=== PATIENT | female | born 1970 | race Caucasian/White ===

== ENCOUNTER 2022-06-02 21:36 | Inpatient (IN) | payer OTHER ==
[~2022-06-02] VITALS: Ht 160 cm; Wt 78.9 kg
[2022-06-02 21:39] VITALS: BP 154/89
--- NOTE | 2022-06-02 21:39 | NUR ---
PT ASIA BLS. TAKEN TO BED 8
--- NOTE | 2022-06-02 21:46 | NUR ---
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
--- NOTE | 2022-06-02 21:54 | NUR ---
52YR OLD FEMALE BIB EMS C/O HR RACING/PALPATIONS HEADACHE. SX STARTED THIS AFTERNOON TO EVENING AFTER RECIEVING CORTISONS SHOTS TODAY. PT IS A&OX4 SKIN WARM AND DRY. RESP EVEN AND UNLABORED. 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 HOB ELEVATED BED AT LOWEST LEVEL. CEPHALEXIN CORTISONE HYPOTHYROID RA
--- NOTE | 2022-06-02 22:38 | NUR ---
CONTACT INFO FOR PT ROOMMATE EVER PROVIDED
--- NOTE | 2022-06-02 22:59 | NUR ---
DR STEPHEN AT BEDSIDE
--- NOTE | 2022-06-02 23:09 | NUR ---
CONTACT INFO FOR PT MOTHER DANIEL PROVIDED
[2022-06-02] MEDS ORDERED: ACETAMINOPHEN 325 MG TAB PO ONE (23:10)
[2022-06-02] MEDS ORDERED: ONDANSETRON 4 MG ODT PO ONE (23:10)
--- NOTE | 2022-06-02 23:15 | NUR ---
PATIENT AMBULATED TO AND BACK TO BED 8 WITH STEADY GAIT
--- NOTE | 2022-06-02 23:17 | NUR ---
Dr. Caraballo examining patient.
[2022-06-02] MEDS ORDERED: ONDANSETRON 4 MG/2 ML VIAL IVP ONE (23:20)
[2022-06-02] MEDS ORDERED: NACL 0.9% 1,000 ML IV SCH (23:20)
[2022-06-02 23:23] LABS: APPEARANCE,URINE SL CLOUDY (CLEAR); BILIRUBIN,URINE NEGATIVE (NEGATIVE); BLOOD, URINE 3+ (NEGATIVE); COLOR,URINE YELLOW (YELLOW); LEUKOCYTE ESTERASE ,URINE NEGATIVE (NEGATIVE); NITRITE, URINE NEGATIVE (NEGATIVE); PH,URINE 5.5 (5.0-9.0); UGLUCOSE 3+ (NEGATIVE)
--- NOTE | 2022-06-02 23:36 | NUR ---
Nidhi smith in [facility] - 06/02/22 at 2336 by TOAN PT TAKEN TO CT
--- NOTE | 2022-06-02 23:36 | NUR ---
PT TO CT
--- NOTE | 2022-06-02 23:37 | NUR ---
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 PT STARTED VOMITING. 20G IV CATH PLACED IN L AC. MEDS GIVEN
[2022-06-02 23:38] LABS: BASOPHILS % (AUTO) 0.1 % (0.0-2.0); HEMATOCRIT 37.5 % (36-48); HEMOGLOBIN 12.4 g/dL (12.0-16.0); LYMPHOCYTES # (AUTO) 0.6 K/uL (2.5-16.5); LYMPHOCYTES % (AUTO) 4.5 % (20.5-51.1); MEAN CORPUSCULAR HEMOGLOBIN 31 pg (27-31); MEAN CORPUSCULAR HGB CONC 33 g/dL (33-37); MEAN CORPUSCULAR VOLUME 92.8 fL (80-94); MONOCYTES # (AUTO) 0.6 K/uL (0.8-1.0); MONOCYTES % (AUTO) 4.5 % (1.7-9.3); NEUTROPHILS % (AUTO) 90.9 % (42.2-75.2); PLATELET COUNT (AUTO) 393 K/uL (140-450); RED BLOOD CELL COUNT(AUTO) 4.04 MIL/uL (4.20-5.40); RED CELL DISTRIBUTION WIDTH 14.2 % (11.6-13.7); WHITE BLOOD COUNT (AUTO) 13.2 K/uL (4.8-10.8)
[2022-06-02 23:38] LABS: RBC,URINE 0-5 /HPF (0-5); WBC,URINE 0-5 /HPF (0-5)
--- NOTE | 2022-06-02 23:45 | NUR ---
PT RETURN FROM CT
[2022-06-03] VITALS (13 sets, daily range): BP systolic 116–171; BP diastolic 71–100
[2022-06-03 00:01] LABS: ALBUMIN 3.4 g/dL (3.4-5.0); ANION GAP 26.9 (8-16); CARBON DIOXIDE 15.3 mmol/L (21-32); CREATININE 2.3 mg/dL (0.6-1.3); POTASSIUM 3.2 mmol/L (3.5-5.1); TOTAL BILIRUBIN 0.4 mg/dL (0.0-1.0)
[2022-06-03] MEDS ORDERED: NACL 0.9% 1,000 ML IV SCH (00:10)
--- NOTE | 2022-06-03 00:13 | NUR ---
Dr. Caraballo examining patient.
[2022-06-03] MEDS ORDERED: cefTRIAXone 2,000 MG in DEXTROSE 5% 100 ML IV ONE (00:15)
[2022-06-03] MEDS ORDERED: cefTRIAXone 2,000 MG VIAL ONE (00:18)
[2022-06-03] MEDS ORDERED: NACL 0.9% 500 ML IV ONE (00:20)
--- NOTE | 2022-06-03 00:24 | NUR ---
BLOOD CULTURES DRAWN AT BEDSIDE AND SENT TO LAB. 2L O2 APPLIED VIA NC. SP02 98%
--- NOTE | 2022-06-03 00:24 | NUR ---
LAB AT BEDSIDE
--- NOTE | 2022-06-03 00:37 | NUR ---
COVID SWAB COLLECTED AND SENT TO LAB
[2022-06-03] MEDS ORDERED: MAG SULF 2000 MG/WATER PREMIX 50 ML IV ONE (00:40)
[2022-06-03] MEDS ORDERED: KCL 20 MEQ/WATER INJ PREMIX 200 ML IV ONE (00:40)
[2022-06-03] MEDS ORDERED: MORPHINE SULFATE 4 MG/ML SYR IVP ONE (00:40)
[2022-06-03] MEDS ORDERED: SYN.075 PO (00:42)
[2022-06-03] MEDS ORDERED: ACET-10509 PO (00:43)
[2022-06-03] MEDS ORDERED: HYDR200T5 PO (00:50)
--- NOTE | 2022-06-03 00:51 | NUR ---
PT WILL BE ADMITED TO HOSPITAL. PENDING ADMISSION ORDERS. MED RECONCILE COMPLETED
--- NOTE | 2022-06-03 00:57 | NUR ---
PT RESTING WITH HOB ELEVATED. PT IS ON BEDSIDE MONITOR. NO DISTRESS NOTED. PT IS AWARE OF ADMISSION.
--- NOTE | 2022-06-03 01:20 | NUR ---
K RIDER STARTED ORDERED BY KARL. PATIENT TOLERATING WELL. PATIENT ON BEDSIDE BUDGET RECORD CLERK WITH BED LOW AND SIDE RAILS UP FOR SAFETY. CALL LIGHT IN REACH.
--- NOTE | 2022-06-03 02:21 | NUR ---
REPEAT TROP K+ AND LATIC ACID. FURNITURE ASSEMBLER AT BEDSIDE
[2022-06-03 02:52] LABS: ALBUMIN 3.1 g/dL (3.4-5.0); ANION GAP 19.1 (8-16); CARBON DIOXIDE 20.4 mmol/L (21-32); CREATININE 1.6 mg/dL (0.6-1.3); POTASSIUM 3.5 mmol/L (3.5-5.1); TOTAL BILIRUBIN 0.2 mg/dL (0.0-1.0)
--- NOTE | 2022-06-03 03:30 | NUR ---
PT AWAKE AND RESTING . PAIN LEVEL 2/10 HEADACHE. 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 RESP EVEN AND UNLABORED. 2ND EKG DONE. PT DENIES ANY SOB OR CP.
--- NOTE | 2022-06-03 04:04 | NUR ---
PATIENT RESTING IN BED WITH EYES CLOSED. RR APPEAR TO BE EVEN AND UNLABORED. DOESNT APPEAR TO BE IN DISTRESS. PATIENT ON BEDSIDE SOUND RANGING CREWMEMBER. VSS UTD IN CHART. BED LOW AND LOCKED. VENICE SIDE RAILS UP FOR SAFETY. CALL LIGHT IN REACH.
--- NOTE | 2022-06-03 04:26 | NUR ---
PLACED ORDERS, I HAD HIM SPEAK TO BEFORE CARRYING OUT HIS ORDERS. WOULD LIKE TO MOVE [facility] WITH HIS ORDERS PLACED.
[2022-06-03] MEDS ORDERED: NOREPINEPHRINE 4 MG in DEXTROSE 5% 250 ML IV PRN (04:35)
[2022-06-03] MEDS ORDERED: BLOOD GLUCOSE MONITORING 1 DEV DEV FS SCH ×2 (04:35→08:28)
[2022-06-03] MEDS ORDERED: INSULIN LISPRO SLIDING SCALE 100 UNITS/ML VIAL SUBQ PRN (04:35)
--- NOTE | 2022-06-03 04:47 | NUR ---
PT/INR DRAWN AND SENT TO LAB
--- NOTE | 2022-06-03 04:53 | NUR ---
ORDERS PLACED PER . CLOTTING FACTORS PENDING. HEPARIN HELD UNTIL RESULTED.
--- NOTE | 2022-06-03 05:04 | NUR ---
ASSISTED PATIENT WITH BEDPAN. TOLERATED WELL. REPOSITIONED AND PLACED NEW LINEN ON PATIENT. ALL NEEDS MET.
[2022-06-03 05:08] LABS: PROTHROMBIN TIME 10.1 secs (10.8-13.4)
--- NOTE | 2022-06-03 05:27 | NUR ---
CALLED TO BEDSIDE BY RN. PT WAS AGITATED AND DESAT TO 70'S WITH AN ELEVATED HR TO 145. PLACED PT ON HFNC 40L 100% PT HR LOWERED TO 130 AND SPO2 INCREASED TO 98% PT BECAME LESS AGITATED WITH EQUAL CHEST RISE BILAT BREATH SOUNDS COARSE AND TOLERATING HFNC. WILL CONTINUE TO MONITOR. Addendum: 06/03/22 at 0536 by Natalie Preston RT NOTATED WRONG PT PLEASE DISREGARD
--- NOTE | 2022-06-03 05:30 | NUR ---
REPORT GIVEN TO LINDA MALLOY. TRANSFER OF CARE
--- NOTE | 2022-06-03 05:30 | NUR ---
Patient will be admitted to care of VIDHI TROTTER. Admited to ICU . Will go to BED 5. Belongings list completed. Report to LINDA MALLOY. TRANSFER OF CARE.
[2022-06-03] MEDS ORDERED: HEPARIN PER PHARMACY MC STA (05:43)
--- NOTE | 2022-06-03 05:43 | NUR ---
Nidhi smith in [facility] - 06/03/22 at 0545 by BRAYDEN REPORT GIVEN TO LINDA MALLOY. TRANSFER OF CARE.
--- NOTE | 2022-06-03 05:50 | NUR ---
RECEIVED PT FROM ER AFTER REPORT FROM GERONIMO MCKEON. PT AMBULATED TO BED W/STEADY GAIT.MONITORS ATTACHED.ST NOTED ON MONITOR.PT AWAKE ALERT AND ORIENTED X4.ON 02NC AT 2LPM, NO SOB NOTED.PER REPORT PT VOIDED PRIOR TO COMING TO ICU, ADEQUATE AMT.W/PERIPHERAL IV TO LT AND RT AC G20, INTACT.PT NO DIET ORDER,WILL F/U WITH MD.SKIN INTACT.DENIES PAIN AT THIS TIME.CALL LIGHT WITHIN REACH.FALL PRECAUTION IN PLACE.WILL CONTINUE TO CLOSELY MONITOR PT
--- NOTE | 2022-06-03 07:07 | NUR ---
PHONE CALL TO PTS AR\ARENTS PER PTS REQUEST,UPDATED ON PTS PRESENT CONDITION.QUESTIONS ANSWERED
[2022-06-03] MEDS ORDERED: ZOLPIDEM 5 MG TAB PO PRN (08:20)
[2022-06-03] MEDS ORDERED: HYDROcodone/APAP 7.5/325 MG 1 TAB PO PRN (08:20)
[2022-06-03] MEDS ORDERED: DOCUSATE SODIUM 100 MG GELCAP PO PRN (08:20)
[2022-06-03] MEDS ORDERED: ACETAMINOPHEN 325 MG TAB PO PRN (08:20)
[2022-06-03] MEDS ORDERED: guaiFENesin DM 200/20 MG-10 ML 10 ML UDC PO PRN (08:20)
[2022-06-03] MEDS ORDERED: POTASSIUM CHLORIDE 10 MEQ TABER PO PRN (08:20)
[2022-06-03] MEDS ORDERED: ONDANSETRON 4 MG/2 ML VIAL IM/IVP PRN (08:20)
[2022-06-03] MEDS ORDERED: NITROGLYCERIN 0.4 MG TAB SL PRN (08:30)
[2022-06-03] MEDS ORDERED: BLOOD GLUCOSE MONITORING 1 DEV DEV FS PRN (08:33)
[2022-06-03] MEDS: LEVOTHYROXINE 0.075 MG TAB PO SCH (08:44)
[2022-06-03] MEDS: ECOTRIN 81 MG TABEC PO SCH (08:44)
[2022-06-03] MEDS: PANTOPRAZOLE 40 MG TABEC PO SCH (08:45)
[2022-06-03] MEDS ORDERED: METOPROLOL 25 MG TAB PO SCH (09:00)
[2022-06-03] MEDS ORDERED: lisinopriL 5 MG TAB PO SCH (09:00)
--- NOTE | 2022-06-03 09:00 | NUR ---
DR SERGO BURNETT AT BEDSIDE, DISCUSSED PLAN OF CARE WITH PT. NO NEW ORDERS AT THIS TIME.
--- NOTE | 2022-06-03 10:05 | NUR ---
SBAR REPORT RECEIVED FROM MI MCKEON, ALL CARES ASSUMED. PT RESTING IN BED ALERT, ORIENTED, CONVERSING WITH STAFF. BED IN LOW,LOCKED POSITION. CALL LIGHT WITHIN REACH.
--- NOTE | 2022-06-03 10:08 | NUR ---
ECHOCARDIOGRAM AT BEDSIDE.
--- NOTE | 2022-06-03 10:17 | NUR ---
PATIENT HAS BEEN SCREENED AND CATEGORIZED HIGH NUTRITION RISK. PATIENT WILL BE SEEN WITHIN 1-2 DAYS OF ADMISSION. 06/03/22-06/05/22 FNS REFERRAL RECEIVED FOR VOMITING > 3 DAYS. REVIEWED BY FILIBERTO DELATORRE RD
[2022-06-03] MEDS: NACL 0.9% 1,000 ML IV SCH ×2 (10:42→16:43)
[2022-06-03 11:40] LABS: CHOL/HDL RATIO 1.7 (1-4.5); FREE T4 (FREE THYROXINE) 0.95 ng/dL (0.76-1.46); MAGNESIUM 2.4 mg/dL (1.8-2.4); PHOSPHORUS 3.2 mg/dL (2.5-4.9); THYROID STIMULATING HORMONE 1.23 uIU/mL (0.34-3.74)
[2022-06-03] MEDS ORDERED: HEPARIN PER PHARMACY MC PRN (11:40)
[2022-06-03 11:42] LABS: PROTHROMBIN TIME 9.9 secs (10.8-13.4)
[2022-06-03] MEDS: hePARIN / DEXT 5% PREMIX 250 ML IV SCH (13:17)
--- NOTE | 2022-06-03 15:15 | NUR ---
PT COMPLAINING OF PAIN AT IV SITE ON LEFT AC. NEW IV INITIATED TO LEFT WRIST WITH 20G CATHETER. BLOOD RETURN NOTED, FLUSHED WITH NORMAL SALINE. NO WARMTH, TENDERNESS OR SWELLING NOTED AT THE SITE. IV TO LEFT AC REMOVED. NO ACTIVE BLEEDING NOTED AT SITE.
--- NOTE | 2022-06-03 15:32 | NUR ---
06/03/2022 RD INITIAL ASSESSMENT COMPLETED PLEASE REFER TO NUTRITION ASSESSMENT UNDER CARE ACTIVITY FOR ESTIMATED NUTRITIONAL NEEDS. 1.RECOMMEND 60 GRAMS CCHO DIET + CARDIAC DIET. 2.MONITOR PO INTAKE AND BLOOD GLUCOSE LEVEL 3.RD TO FOLLOW-UP IN 3-5 DAYS PATIENT IS MODERATE RISK. FILIBERTO DELATORRE, RD
[2022-06-03] MEDS ORDERED: hydrALAZINE 20 MG/ML VIAL IVP PRN (16:20)
--- NOTE | 2022-06-03 16:41 | NUR ---
DC PLANNING: DR FRANKLIN ORDERED FOR PATIENT TO TRANSFER TO HIGHER LEVEL OF CARE FOR CARDIAC CATH. FAXED TO [facility] AND PROVIDE ICU UNIT'S NUMBER AND NOTIFIED JUANCARLOS MCKEON TO FOLLOW UP . CM TO FOLLOW Addendum: 06/04/22 at 1040 by Nya Camacho RN DC PLANNING: CALLED [facility] [phone] SPOKE WITH MELCHOR CASE RE RECORDING MIXER, UPDATED ALL PT'S CLINICAL AND PROVIDE DR FRANKLIN AND DR PEREZ'S PHONE NUMBER. PER MELCHOR ONCE IT REVIEWED BY CM WILL CONTACT [facility]. CM TO FOLLOW
[2022-06-03] MEDS ORDERED: ATORVASTATIN 20 MG TAB PO SCH (17:00)
--- NOTE | 2022-06-03 18:10 | NUR ---
PATIENT WHEELED ON WHEELCHAIR BY NURSE MICHELLE AND JUANCARLOS FROM ICU. PATIENT ALERT AND ORIENTED ABLE TO MAKE NEEDS KNOWN RESPIRATION EVEN AND NOT LABORED. WHEN TRANSFERRING AND MAKING PATIENT SITUATED PATIENT IV ON RIGHT AC NOTED LEAKING AND RN CHANGE THE SITE TO LEFT FOREARM ELEONORA 22, ALSO PATIENT HAS ELEONORA 20 ON RIGHT WRIST. PATIENT RUNNING HEPARIN DRIP AT 800 CC/HOUR AND IV FLUID OF NS AT 1125 CC/HOUR. CALL LIGHT WITH IN EASY REACH. PATIENT ON 87 SINUS RHYTHM NO COMPLAIN OF CHEST PAIN OR ANY DISCOMFORT.
--- NOTE | 2022-06-03 18:45 | NUR ---
PT TRANSFERRED TO BED 105B. SBAR REPORT GIVEN TO GRICEL MCKEON, ALL CARES ENDORSED.
--- NOTE | 2022-06-03 19:30 | NUR ---
RECEIVED PT ENDORSEMENT FROM DAY SHIFT NURSE FOR CONTINUITY OF CARE. PT IS AWAKE, LAERT AND VERBALLY RESPONSIVE, FAMILY MEMBER IS ON BED SIDE IV SALINE LOCK LEFT AC 20=20G & LEFT FOREARM 20G ARE INTACT AND PATENT, NO SIGN/SYMPTOM OF INFECTION. PT IS CONTINENT AND AMBULATORY. PT IS DOWN GRADE FROM ICU, IS ON STABLE. CONTINUE MONITORING.
[2022-06-03] MEDS: carvediloL 12.5 MG TAB PO SCH (21:00)
--- NOTE | 2022-06-03 21:46 | NUR ---
PT APTT 28.8, PT IS ON HEPARIN DRIP, CURRENTLY HEPARIN DRIP AT 800 UNITS/HR. HEPARIN BOLUS 3800 UNITS ADMINISTERED ORDER. HEPARIN IV DRIP CURRENTLY 800 UNITS, ADD 300 UNITS PER ORDER WHEN APTT BELOW 35. PT WELL TOLERATED, NO SIDE REACTION AT THIS TIME.
[2022-06-03] MEDS ORDERED: cefTRIAXone 1,000 MG VIAL ONE (23:58)
[2022-06-04] VITALS (10 sets, daily range): BP systolic 90–118; BP diastolic 56–96
[2022-06-04] MEDS: NACL 0.9% 1,000 ML IV SCH ×3 (01:32→17:47)
--- NOTE | 2022-06-04 01:37 | NUR ---
PT IS SLEEPING WELL, NO ALLERGY REACTION ON IV ANTIBIOTIC.
[2022-06-04 03:31] LABS: BASOPHILS # (AUTO) 0.1 K/uL (0.00-0.22); BASOPHILS % (AUTO) 0.5 % (0.0-2.0); HEMATOCRIT 30.9 % (36-48); HEMOGLOBIN 10.2 g/dL (12.0-16.0); LYMPHOCYTES # (AUTO) 1.7 K/uL (2.5-16.5); LYMPHOCYTES % (AUTO) 7.3 % (20.5-51.1); MEAN CORPUSCULAR HEMOGLOBIN 31 pg (27-31); MEAN CORPUSCULAR HGB CONC 33 g/dL (33-37); MEAN CORPUSCULAR VOLUME 92.6 fL (80-94); MONOCYTES # (AUTO) 1.4 K/uL (0.8-1.0); MONOCYTES % (AUTO) 6.1 % (1.7-9.3); NEUTROPHILS % (AUTO) 86.1 % (42.2-75.2); PLATELET COUNT (AUTO) 266 K/uL (140-450); RED BLOOD CELL COUNT(AUTO) 3.34 MIL/uL (4.20-5.40); RED CELL DISTRIBUTION WIDTH 14.8 % (11.6-13.7); WHITE BLOOD COUNT (AUTO) 23.2 K/uL (4.8-10.8)
[2022-06-04 03:53] LABS: CARBON DIOXIDE 25.9 mmol/L (21-32); POTASSIUM 4.9 mmol/L (3.5-5.1)
[2022-06-04] MEDS: hePARIN / DEXT 5% PREMIX 250 ML IV SCH ×2 (05:17→13:49)
--- NOTE | 2022-06-04 05:28 | NUR ---
LAB RESULT THIS AM = 45.6. HEPARIN DRIP ADJUST DOSAGE AND INCREASE 100 UNITS WITH TOTAL OF 1,200 UNITS/HR. ADMINISTERED HEPARIN BOLUS 1900 UNITS IVP. PT TOLERATES WELL. NO SIDE REACTION.
[2022-06-04] MEDS: LEVOTHYROXINE 0.075 MG TAB PO SCH (05:50)
--- NOTE | 2022-06-04 06:50 | NUR ---
CHECK PT BLOOD SUGAR = 70, NO SLIDING SCALE COVERAGE, NO INSULIN NEEDED.
--- NOTE | 2022-06-04 06:50 | NUR ---
REVISED ON THE PREVIOUS NOTES, PT HAS NO DM OR BLOOD SUGAR PROBLEM, THIS ALLERGY AND IMMUNOLOGY SPECIALIST MADE A MISTAKE, THIS IS FOR OTHER PATIENT.
--- NOTE | 2022-06-04 07:50 | NUR ---
PT IS ON STABLE CONDITION, ALL SAFETY MEASURES ARE IN PLACE. ENDORSED TO DAY SHIFT NURSE FOR CONTIN OF CARE.
--- NOTE | 2022-06-04 07:52 | NUR ---
GOT REPORT FROM THE NIGHT NURSE PT AWAKE DISCUSSED [id number]
[2022-06-04 08:07] LABS: T4 (THYROXINE) 5.6 ug/dL (4.5-12.0)
[2022-06-04] MEDS: carvediloL 12.5 MG TAB PO SCH (08:25)
[2022-06-04] MEDS: ECOTRIN 81 MG TABEC PO SCH (08:27)
[2022-06-04] MEDS: PANTOPRAZOLE 40 MG TABEC PO SCH (08:27)
[2022-06-04] MEDS: PIPERACILLIN/TAZOBACTAM 3.375 GM in DEXTROSE 5% 50 ML IV SCH ×2 (11:41→17:49)
--- NOTE | 2022-06-04 14:23 | NUR ---
DC PLANNING [facility] MET WITH PT AT BEDSIDE TO COMPLETE ASSESSMENT. PATIENT REPORTS RESIDING IN A SINGLE STORY HOME WITH HER AT THE ADDRESS LISTED ON FILE. PATIENT IDENTIFIED ANIA WADE, MOM [phone] AND JOSÉ MIGUEL WADE, FATHER, EMERGENCY CONTACTS. PATIENT DENIES HAVING AD IN PLACE AND ACCEPTED AD OFFERED BY [facility]. PATIENT REPORTS MEETING WITH PCP, RODRIGUEZ DAVENPORT, NEEDED, LAST VISIT; 06/02. PATIENT REPORTS MEDICATION COMPLIANCE AND DENIES BARRIERS IN ACCESS TO NEEDED MEDICATIONS. PATIENT REPORTS THAT MEDICATION IN MAILED TO HER HOME. PATIENT REPORTS BEING INDEPENDENT IN ALL ACTIVITIES AND DENIES USE OF DME. PT DENIES MH/SA HX. PT REPORTS DC PLAN IS TO BE TRANSFERRED TO [place]. SW NOTIFIED PT THAT CM IS WORKING ON TRANSFER AND WOULD PROVIDE UPDATES. PATIENT IN UNDERSTANDING. SW INQUIRED ON RESOURCES NEEDED AT THIS TIME, PT DECLINED. PT DENIES HX OF DIABETES, DIALYSIS, HH SERVICES AND SNF PLACEMENT. Addendum: 06/04/22 at 1425 by Yuliet HINTON Amended: Links added.
--- NOTE | 2022-06-04 19:10 | NUR ---
RECEIVED REPORT FROM DAY SHIFT LINDA GARCÍA FOR CONTINUITY OF CARE. PT IS AAOX4 ON ROOM AIR. PT IS AMBULATORY. PT HAS LEFT AC 20 GAUGE AND LEFT FOREARM 22 GAUGE. PT IS RUNNING NS 120 CC/HR. PT IS ALSO ON HEPARIN DRIP 1200 UNITS PER HOUR. PT IS CONTINENT. PLAN OF CARE DISCUSSED. CALL LIGHT WITHIN REACH. WILL CONTINUE TO MONITOR THE PT.
--- NOTE | 2022-06-04 20:20 | NUR ---
CALL CENTER AND GAVE REPORT TO LINDA LOPEZ. PT IS GOING TO [facility] ROOM 639. MORTGAGE LOAN COUNSELOR TIME IS 1999.
--- NOTE | 2022-06-04 21:10 | NUR ---
[facility] IS HERE FOR THE PT. PT LEFT FACILITY IN STABLE CONDITION.
[2022-06-04 21:50] LABS: BARBITURATE, URINE NEGATIVE ng/ml (NEG <=200); BENZODIAZEPINE, URINE NEGATIVE ng/mL (NEG <=200); CANNABINOID, URINE NEGATIVE ng/mL (NEG <=50); COCAINE, URINE NEGATIVE ng/mL (NEG <=300); OPIATE, URINE POSITIVE ng/mL (NEG <=2000); PHENCYCLIDINE SCREEN,URINE NEGATIVE ng/mL (NEG <=25)
== END 2022-06-04 21:10 | disposition short-term general hospital (02) | DRG 871 ==
LOC: MED 21:36 → MIC 06-03 04:48 → MTU 06-03 18:44
PROVIDERS: ADMIT Family Medicine; ATTEND Family Medicine
DX: A41.9 Sepsis, unspecified organism (principal); E11.00 Type 2 diabetes mellitus with hyperosmolarity without nonketotic hyperglycemic-hyperosmolar coma (NKHHC); R65.21 Severe sepsis with septic shock; N17.0 Acute kidney failure with tubular necrosis; G93.41 Metabolic encephalopathy; I21.A1 Myocardial infarction type 2; N12 Tubulo-interstitial nephritis, not specified as acute or chronic; E44.0 Moderate protein-calorie malnutrition; E03.9 Hypothyroidism, unspecified; M06.9 Rheumatoid arthritis, unspecified; E11.65 Type 2 diabetes mellitus with hyperglycemia; E87.6 Hypokalemia; E86.0 Dehydration; Z20.822 Contact with and (suspected) exposure to COVID-19
CPT/HCPCS: 36415; 70450; 71045; 76770; 80048; 80053; 80305; 81001; 82009; 82150; 83036; 83605; 83690; 83735; 83880; 84100; 84436; 84439; 84443; 84479; 84484; 85025; 85610; 85730; 87040; 87081; 87086; 93005; 96361; 96365; 96366; 96367; 96368; 96375; 99291; J0696; J1644; J2270; J2405; J2543; J3475; J3480; J7060; Q0092